=== PATIENT | female | born 1965 | race Caucasian/White ===

== ENCOUNTER 2020-07-24 09:20 | Outpatient (CLI) | payer BC | END 2020-07-24 09:21 | disposition home or self-care (01) | LOC: LAB.S 09:20 | PROVIDERS: ATTEND Physician Assistant | DX: E03.9 Hypothyroidism, unspecified (principal) | CPT/HCPCS: 36415; 84443 ==

== ENCOUNTER 2021-09-03 08:35 | Outpatient (CLI) | payer BC ==
[2021-09-03 15:43] LABS: BASOPHILS # (AUTO) 0.1 10^3/uL (0.0-0.1); BASOPHILS % (AUTO) 1.3 %; EOSINOPHILS # (AUTO) 0.2 10^3/uL (0.0-0.7); EOSINOPHILS % (AUTO) 3.8 %; HCT - HEMATOCRIT 35.6 % (37.0-47.0); LYMPHOCYTES # (AUTO) 1.4 10^3/uL (1.5-3.5); LYMPHOCYTES % (AUTO) 36.2 %; MEAN CORPUSCULAR HEMOGLOBIN 31.6 pg (27.0-31.0); MEAN CORPUSCULAR HGB CONC 30.9 g/dL (32.0-36.0); MEAN CORPUSCULAR VOLUME 102.3 fL (81.0-99.0); MEAN PLATELET VOLUME 11.6 fL (7.9-10.8); MONOCYTES # (AUTO) 0.4 10^3/uL (0.0-1.0); MONOCYTES % (AUTO) 8.9 %; NEUTROPHILS % (AUTO) 49.5 %; PLT - PLATELET COUNT 173 10^3/uL (130-450); RED BLOOD COUNT 3.48 10^6/uL (4.20-5.40); RED CELL DISTRIBUTION WIDTH 13.2 % (12.0-15.0)
[2021-09-03 15:57] LABS: ALBUMIN/GLOBULIN RATIO 1.7 (1.0-2.2); ALKALINE PHOSPHATASE 78 IU/L (42-121); ALT ALANINE AMINOTRANSFERASE 24 IU/L (10-60); AST ASPARTATE AMINOTRANSFERASE 26 IU/L (10-42); BILIRUBIN,TOTAL 0.7 mg/dL (0.2-1.0); BUN - BLOOD UREA NITROGEN 14 mg/dL (6-20); CARBON DIOXIDE - CO2 29 mmol/L (21-32); CHLORIDE 100 mmol/L (101-111); CHOL/HDL RATIO 1.8 (<4.4); CHOLESTEROL 170 mg/dL; CREATININE 0.7 mg/dL (0.4-1.0); GFR - MDRD 87 (>89); GLUCOSE 88 mg/dL (70-100); HDL CHOLESTEROL 92 mg/dL; LDL CHOLESTEROL,CALCULATED 69 mg/dL; LDL/HDL RATIO 0.8 (<4.4); POTASSIUM 3.5 mmol/L (3.5-5.0); SODIUM 138 mmol/L (135-145); TOTAL PROTEIN 6.3 g/dL (6.7-8.2); TRIGLYCERIDES 45 mg/dL; VLDL CHOLESTEROL 9 mg/dL
[2021-09-03 16:16] LABS: THYROID STIMULATING HORMONE 0.44 uIU/mL (0.34-5.60)
== END 2021-09-03 08:36 | disposition home or self-care (01) ==
LOC: LAB.S 08:35
PROVIDERS: ATTEND Registered Nurse
DX: E03.9 Hypothyroidism, unspecified (principal); Z13.220 Encounter for screening for lipoid disorders; Z13.0 Encounter for screening for diseases of the blood and blood-forming organs and certain disorders involving the immune mechanism; Z79.899 Other long term (current) drug therapy
CPT/HCPCS: 36415; 80053; 80061; 83721; 84443; 85025

== ENCOUNTER 2021-10-12 08:10 | Outpatient (CLI) | payer BC ==
[2021-10-12 14:22] LABS: BASOPHILS # (AUTO) 0.1 10^3/uL (0.0-0.1); BASOPHILS % (AUTO) 1.1 %; EOSINOPHILS # (AUTO) 0.2 10^3/uL (0.0-0.7); EOSINOPHILS % (AUTO) 3.4 %; HGB - HEMOGLOBIN 11.5 g/dL (12.0-16.0); LYMPHOCYTES # (AUTO) 1.4 10^3/uL (1.5-3.5); LYMPHOCYTES % (AUTO) 32.6 %; MEAN CORPUSCULAR HEMOGLOBIN 31.4 pg (27.0-31.0); MEAN CORPUSCULAR HGB CONC 31.9 g/dL (32.0-36.0); MEAN CORPUSCULAR VOLUME 98.4 fL (81.0-99.0); MEAN PLATELET VOLUME 11.6 fL (7.9-10.8); MONOCYTES # (AUTO) 0.4 10^3/uL (0.0-1.0); MONOCYTES % (AUTO) 8.6 %; NEUTROPHILS # (AUTO) 2.4 10^3/uL (1.5-6.6); NEUTROPHILS % (AUTO) 54.3 %; PLT - PLATELET COUNT 205 10^3/uL (130-450); RED BLOOD COUNT 3.66 10^6/uL (4.20-5.40); RED CELL DISTRIBUTION WIDTH 12.7 % (12.0-15.0); WHITE BLOOD COUNT 4.4 x10^3/uL (4.8-10.8)
== END 2021-10-12 08:11 | disposition home or self-care (01) ==
LOC: LAB.S 08:10
PROVIDERS: ATTEND Registered Nurse
DX: Z79.899 Other long term (current) drug therapy (principal)
CPT/HCPCS: 36415; 85025

== ENCOUNTER 2021-11-29 08:19 | Outpatient (CLI) | payer BC ==
[2021-11-29 15:15] LABS: ABSOLUTE RETICS # AUTO 0.036 10^6/uL (0.020-0.110); BASOPHILS # (AUTO) 0.1 10^3/uL (0.0-0.1); BASOPHILS % (AUTO) 1.1 %; EOSINOPHILS # (AUTO) 0.1 10^3/uL (0.0-0.7); EOSINOPHILS % (AUTO) 2.6 %; HCT - HEMATOCRIT 35.1 % (37.0-47.0); HGB - HEMOGLOBIN 11.6 g/dL (12.0-16.0); LYMPHOCYTES # (AUTO) 1.5 10^3/uL (1.5-3.5); LYMPHOCYTES % (AUTO) 32.5 %; MEAN CORPUSCULAR HEMOGLOBIN 32.3 pg (27.0-31.0); MEAN CORPUSCULAR VOLUME 97.8 fL (81.0-99.0); MEAN PLATELET VOLUME 11.1 fL (7.9-10.8); MONOCYTES # (AUTO) 0.4 10^3/uL (0.0-1.0); MONOCYTES % (AUTO) 7.8 %; NEUTROPHILS # (AUTO) 2.6 10^3/uL (1.5-6.6); NEUTROPHILS % (AUTO) 55.8 %; PLT - PLATELET COUNT 182 10^3/uL (130-450); RED BLOOD COUNT 3.59 10^6/uL (4.20-5.40); RED CELL DISTRIBUTION WIDTH 13.2 % (12.0-15.0); WHITE BLOOD COUNT 4.6 x10^3/uL (4.8-10.8)
[2021-11-29 16:00] LABS: FERRITIN 11.5 ng/mL (11.0-306.8)
[2021-11-29 16:22] LABS: % IRON SATURATION 18 % (20-50); IRON 80 ug/dL (28-170); TOTAL IRON BINDING CAPACITY 444 ug/dL (250-450); TRANSFERRIN 317 mg/dL (192-382)
== END 2021-11-29 08:20 | disposition home or self-care (01) ==
LOC: LAB.S 08:19
PROVIDERS: ATTEND Registered Nurse
DX: D64.9 Anemia, unspecified (principal)
CPT/HCPCS: 36415; 81599; 82607; 82728; 82746; 83020; 83540; 84466; 85014; 85018; 85025; 85041; 85045

== ENCOUNTER 2022-01-13 09:22 | Day surgery (SDC) | payer BC ==
[2022-01-13] MEDS ORDERED: LACTATED RINGERS 1,000 ML IV ONE (09:27)
[2022-01-13] MEDS ORDERED: PROPOFOL 500 MG/50 ML 500 MG/50 ML VIAL ONE (09:59)
[2022-01-13] MEDS ORDERED: MIDAZOLAM 2 MG/2 ML VIAL ONE (10:08)
--- NOTE | 2022-01-13 10:12 | ANESTHESIA ---
Pre-Anesthesia VS, & Labs - Diagnosis anemia - Procedure EGD Vital Signs: Temp Pulse Resp BP Pulse Ox 36.4 C L 81 16 148/95 H 100 01/13/22 09:27 01/13/22 09:27 01/13/22 09:27 01/13/22 09:27 01/13/22 09:27 Height: 5 ft 3 in Weight (kg): 60.9 kg Body Mass Index: 23.8 BMI Classification: Healthy weight - NPO >8 hours - Is Patient ?: No Home Medications and Allergies Home Medications: Ambulatory Orders Fexofenadine [Elisha] 60 mg PO PRN PRN 01/12/22 Levothyroxine [Synthroid] 25 mcg PO QDAC 01/12/22 Multivitamin 1 each PO DAILY 01/12/22 Nortriptyline [Pamelor] 30 mg PO HS 01/12/22 diphenhydrAMINE [Benadryl] 1 tab ORAL PRN PRN 01/12/22 Fexofenadine [Elisha] 60 mg PO PRN PRN 01/12/22 Levothyroxine [Synthroid] 25 mcg PO QDAC 01/12/22 Multivitamin 1 each PO DAILY 01/12/22 Nortriptyline [Pamelor] 30 mg PO HS 01/12/22 diphenhydrAMINE [Benadryl] 1 tab ORAL PRN PRN 01/12/22 Allergies/Adverse Reactions: Allergies Allergy/AdvReac Type Severity Reaction Status Date / Time No Known Drug Allergies Allergy Verified 01/12/22 14:27 Anes History & Medical History - Anesthetic History Anesthesia Complications: reports: No previous complications - Medical History Cardiovascular: reports: None Pulmonary: reports: None Gastrointestinal: reports: None, GERD Urinary: reports: None Musculoskeletal: reports: Osteoarthritis Endocrine/Autoimmune: reports: HyPOthyroidism Smoking Status: Never smoker History of Cancer?: No - Surgical History Eyes Ears Nose Throat (EENT): reports: Tonsil/Adenoidectomy Exam General: Alert Dental: WNL Mouth Opening: Greater than 4 Fingerbreadths Neck Mobility: Normal Mallampati classification: II Thyromental Distance: greater than 6 cm Respiratory: Lungs clear Cardiovascular: Regular rate Plan Anesthesia Type: Total IV Consent for Procedure(s) Verified and Reviewed: Yes Code Status: Attempt Resuscitation ASA classification: 2-Mild systemic disease Is this case an emergency?: No
[2022-01-13] MEDS ORDERED: LIDOCAINE-MPF 2% 5 ML VIAL ONE (10:41)
[2022-01-13] MEDS ORDERED: PROPOFOL 200 MG/20 ML VIAL IVP ONE (10:54)
[2022-01-13] MEDS ORDERED: LACTATED RINGERS 300 ML IV ONE (11:30)
[2022-01-13 12:22] VITALS: BP 140/86
--- NOTE | 2022-01-13 13:08 | ANESTHESIA POST OP EVALUATION ---
Anesthesia Post Eval - Post Anesthesia Eval Vitals: Last Vital Signs Temp 36.3 C L 01/13/22 12:15 Pulse 52 L 01/13/22 12:15 Resp 12 01/13/22 12:15 BP 140/86 H 01/13/22 12:15 Pulse Ox 100 01/13/22 12:15 CV Function Including HR & BP: Stable Pain Control: Satisfactory Nausea & Vomiting: Negative Mental Status: Baseline Respiratory Status: Airway Patent Hydration Status: Satisfactory Anesthesia Complications: None
== END 2022-01-13 09:23 | disposition home or self-care (01) ==
LOC: SDS 09:22
PROVIDERS: ATTEND Surgery
PROC: 0DB78ZX Excision of Stomach, Pylorus, Via Natural or Artificial Opening Endoscopic, Diagnostic (ICD-10-PCS; 2022-01-13)
PROC: 0DB38ZX Excision of Lower Esophagus, Via Natural or Artificial Opening Endoscopic, Diagnostic (ICD-10-PCS; 2022-01-13)
PROC: 0DB48ZX Excision of Esophagogastric Junction, Via Natural or Artificial Opening Endoscopic, Diagnostic (ICD-10-PCS; 2022-01-13)
PROC: 0DBP8ZZ Excision of Rectum, Via Natural or Artificial Opening Endoscopic (ICD-10-PCS; principal; 2022-01-13 10:30)
PROC: 0DB98ZX Excision of Duodenum, Via Natural or Artificial Opening Endoscopic, Diagnostic (ICD-10-PCS; 2022-01-13 10:30)
DX: D64.9 Anemia, unspecified (principal); D12.8 Benign neoplasm of rectum; K57.30 Diverticulosis of large intestine without perforation or abscess without bleeding; K21.9 Gastro-esophageal reflux disease without esophagitis
CPT/HCPCS: 43239; 45385; J7120

== ENCOUNTER 2022-03-28 15:44 | Emergency (ER) | payer BC ==
[2022-03-28 15:50] VITALS: BP 126/93
[2022-03-28] MEDS ORDERED: BACITRACIN ZINC OINT 1 PACKET TOP STA (17:12)
[2022-03-28] MEDS ORDERED: AMOX/CLAV 875 MG/125 MG TABLET PO STA (17:18)
--- NOTE | 2022-03-28 17:22 | ED Physician Documentation ---
History of Present Illness - Stated complaint Stated Complaint: DOG BITE - Chief complaint Chief Complaint: Laceration - History obtained from History obtained from: Patient - Additonal information Additional information: Patient comes emergency department chief complaint of dog bite. Patient states her 2 dogs were fighting and she tried to break them up and ended up getting bitten. She states she has wounds on both hands and forearms. No other injuries or complaints. Tetanus is up-to-date. Review of Systems Ten Systems: 10 systems reviewed and negative Constitutional: reports: Reviewed and negative Eyes: reports: Reviewed and negative Ears: reports: Reviewed and negative Nose: reports: Reviewed and negative Throat: reports: Reviewed and negative Cardiac: reports: Reviewed and negative Respiratory: reports: Reviewed and negative GI: reports: Reviewed and negative : reports: Reviewed and negative Skin: reports: Bite / sting Musculoskeletal: reports: Reviewed and negative Neurologic: reports: Reviewed and negative Psychiatric: reports: Reviewed and negative Endocrine: reports: Reviewed and negative Immunocompromised: reports: Reviewed and negative PD PAST MEDICAL HISTORY - Past Medical History Past Medical History: Yes Cardiovascular: None Respiratory: None Neuro: None Endocrine/Autoimmune: HyPOthyroidism GI: GERD A P SUPERVISOR: None : None HEENT: None Psych: None Musculoskeletal: Osteoarthritis Derm: None - Past Surgical History Past Surgical History: Yes General: Colonoscopy HEENT: Tonsil/Adenoidectomy - Present Medications Home Medications: Ambulatory Orders Medication Instructions Recorded Confirmed Fexofenadine [Elisha] 60 mg PO PRN PRN 01/12/22 03/28/22 Levothyroxine [Synthroid] 25 mcg PO QDAC 01/12/22 03/28/22 Multivitamin 1 each PO DAILY 01/12/22 03/28/22 Nortriptyline [Pamelor] 30 mg PO HS 01/12/22 03/28/22 diphenhydrAMINE [Benadryl] 1 tab ORAL PRN PRN 01/12/22 03/28/22 Amox/Clav 875/125 [Augmentin 1 tablet PO Q12H 7 Days #14 tablet 03/28/22 875/125 Tab] - Allergies Allergies/Adverse Reactions: Allergies Allergy/AdvReac Type Severity Reaction Status Date / Time No Known Drug Allergies Allergy Verified 03/28/22 15:50 - Social History Does the pt smoke?: No Smoking Status: Never smoker Does the pt drink ETOH?: No Does the pt have substance abuse?: No - Immunizations Immunizations are current?: Yes PD ED PE NORMAL - Vitals Vital signs reviewed: Yes - General General: Alert and oriented X 3, No acute distress, Well developed/nourished - HEENT HEENT: Atraumatic, PERRL, EOMI, Moist mucous membranes - Neck Neck: Supple, no meningeal sign - Cardiac Cardiac: Strong equal pulses - Respiratory Respiratory: No respiratory distress - Derm Derm: Warm and dry, Other (Multiple skin tears and superficial punctures over patient's bilateral hands and forearms. An oblique, V-shaped deep tear/laceration is noted on right forearm and another lac/tear more proximally that is approximately 1 cm in length. No foreign body ) - Extremities Extremities: No deformity, Normal ROM s pain - Neuro Neuro: Alert and oriented X 3 - Psych Psych: Normal mood, Normal affect Results - Vitals Vitals: Vital Signs - 24 hr 03/28/22 15:48 Temperature 36.1 C L Heart Rate 76 Respiratory 16 Rate Blood Pressure 126/93 H O2 Saturation 100 Oxygen O2 Source Room air Procedures - Laceration (location) Right forearm Length in cm: 2.5 Wound type: Flap, Into subcut fat, Clean Neurovascular status: Sensory intact, Motor intact, Vascular intact Tendon involvement: Tendon intact Anesthesia: Lidocaine 1% Wound preparation: Hibiclens, Irrigated copiously NS, Wound explored, To the base, debridement of wound edges (traumatic laceration/avulsion) Skin layer closure: Nylon, Interrupted, Size #-0 - enter number (4.0), Sutures - enter # (5) Other: Patient tolerated well, No complications, Dressing applied, Tetanus UTD Left forearm Length in cm: 1 Wound type: Linear Neurovascular status: Sensory intact, Motor intact, Vascular intact Tendon involvement: Tendon intact Anesthesia: Lidocaine 1% Wound preparation: Hibiclens, Irrigated copiously NS, Wound explored, To the base Skin layer closure: Nylon, Interrupted, Size #-0 - enter number, Sutures - enter # (2) Other: Patient tolerated well, No complications, Neurovascular intact, Dressing applied PD MEDICAL DECISION MAKING - ED course Complexity details: considered differential, d/w patient ED course: Patient's wounds were cleaned and dressed and repaired as above. Patient was started on Augmentin. We have discussed wound care at home, timeline for suture removal, and the usual indications for return. Departure - Departure Disposition: 01 Home, Self Care Clinical Impression: Laceration Dog bite Qualifiers: Encounter type: initial encounter Qualified Code(s): W54.0XXA - Bitten by dog, initial encounter Condition: Stable Instructions: ED Bite Dog, ED Laceration Hand Prescriptions: Amox/Clav 875/125 [Augmentin 875/125 Tab] 1 tablet PO Q12H 7 Days #14 tablet Comments: Your 2 wounds have been sutured with a total of 7 sutures today. These are synthetic sutures and will need to be removed by medical professional in 7 days. You may go to urgent care, walk-in clinic, or your primary doctor for this. If you are unable to be seen in any of these venues, you may return to the emergency department for wound check and suture removal. In general, dog bite wounds that are washed very well do not become infected, but because we have had to close to her wounds, rather than leaving the floor the wound open to air, we will place you on antibiotics. You have been given first dose here, but please picker packer the remainder at the pharmacy of your choice via prescription. You may let water and soap run over the sutured wounds but please do not rub, scrub, or immerse the wounds until sutures are removed. This is to prevent infection. If you begin to notice redness and swelling spreading away from the wound, or if you notice that they formally crusted and scabbed wound has become and "mushy", you will need to have the wound rechecked. Discharge Date/Time: 03/28/22 17:32
== END 2022-03-28 17:32 | disposition home or self-care (01) ==
LOC: ED 15:44
DX: S51.812A Laceration without foreign body of left forearm, initial encounter (principal); S51.811A Laceration without foreign body of right forearm, initial encounter; S60.572A Other superficial bite of hand of left hand, initial encounter; S60.571A Other superficial bite of hand of right hand, initial encounter; W54.0XXA Bitten by dog, initial encounter; Y93.K9 Activity, other involving animal care
CPT/HCPCS: 12002; 99282; A9270

== ENCOUNTER 2022-09-26 08:05 | Outpatient (CLI) | payer BC ==
[2022-09-26 15:06] LABS: BASOPHILS # (AUTO) 0.1 10^3/uL (0.0-0.1); BASOPHILS % (AUTO) 1.1 %; EOSINOPHILS # (AUTO) 0.2 10^3/uL (0.0-0.7); EOSINOPHILS % (AUTO) 3.3 %; HGB - HEMOGLOBIN 12.3 g/dL (12.0-16.0); LYMPHOCYTES # (AUTO) 1.9 10^3/uL (1.5-3.5); LYMPHOCYTES % (AUTO) 34.6 %; MEAN CORPUSCULAR HEMOGLOBIN 32.8 pg (27.0-31.0); MEAN CORPUSCULAR HGB CONC 32.4 g/dL (32.0-36.0); MEAN CORPUSCULAR VOLUME 101.3 fL (81.0-99.0); MEAN PLATELET VOLUME 10.2 fL (7.9-10.8); MONOCYTES # (AUTO) 0.5 10^3/uL (0.0-1.0); MONOCYTES % (AUTO) 8.4 %; NEUTROPHILS # (AUTO) 2.9 10^3/uL (1.5-6.6); NEUTROPHILS % (AUTO) 52.4 %; PLT - PLATELET COUNT 230 10^3/uL (130-450); RED BLOOD COUNT 3.75 10^6/uL (4.20-5.40); RED CELL DISTRIBUTION WIDTH 12.4 % (12.0-15.0); WHITE BLOOD COUNT 5.5 x10^3/uL (4.8-10.8)
[2022-09-26 15:31] LABS: ALBUMIN 4.1 g/dL (3.2-5.5); ALBUMIN/GLOBULIN RATIO 1.6 (1.0-2.2); ALKALINE PHOSPHATASE 59 IU/L (42-121); ALT ALANINE AMINOTRANSFERASE 20 IU/L (10-60); AST ASPARTATE AMINOTRANSFERASE 25 IU/L (10-42); BILIRUBIN,TOTAL 0.6 mg/dL (0.2-1.0); BUN - BLOOD UREA NITROGEN 21 mg/dL (6-20); CARBON DIOXIDE - CO2 28 mmol/L (21-32); CHLORIDE 105 mmol/L (101-111); CHOLESTEROL 216 mg/dL; CREATININE 0.7 mg/dL (0.4-1.0); GFR - MDRD 87 (>89); GLUCOSE 95 mg/dL (70-100); HDL CHOLESTEROL 110 mg/dL; POTASSIUM 4.2 mmol/L (3.5-5.0); SODIUM 139 mmol/L (135-145); TOTAL PROTEIN 6.6 g/dL (6.7-8.2); TRIGLYCERIDES 38 mg/dL
[2022-09-26 15:35] LABS: THYROID STIMULATING HORMONE 3.48 uIU/mL (0.34-5.60)
== END 2022-09-26 08:06 | disposition home or self-care (01) ==
LOC: LAB.S 08:05
PROVIDERS: ATTEND Registered Nurse
DX: E03.9 Hypothyroidism, unspecified (principal); D61.818 Other pancytopenia; Z79.899 Other long term (current) drug therapy; Z13.220 Encounter for screening for lipoid disorders
CPT/HCPCS: 36415; 80053; 80061; 83721; 84443; 85025

== ENCOUNTER 2023-11-06 08:37 | Outpatient (CLI) | payer BC ==
[2023-11-06 15:09] LABS: BASOPHILS # (AUTO) 0.1 10^3/uL (0.0-0.1); BASOPHILS % (AUTO) 1.2 %; EOSINOPHILS # (AUTO) 0.2 10^3/uL (0.0-0.7); EOSINOPHILS % (AUTO) 3.4 %; HCT - HEMATOCRIT 38.9 % (37.0-47.0); HGB - HEMOGLOBIN 12.4 g/dL (12.0-16.0); LYMPHOCYTES # (AUTO) 2.1 10^3/uL (1.5-3.5); MEAN CORPUSCULAR HEMOGLOBIN 31.7 pg (27.0-31.0); MEAN CORPUSCULAR HGB CONC 31.9 g/dL (32.0-36.0); MEAN CORPUSCULAR VOLUME 99.5 fL (81.0-99.0); MEAN PLATELET VOLUME 10.4 fL (7.9-10.8); MONOCYTES # (AUTO) 0.4 10^3/uL (0.0-1.0); MONOCYTES % (AUTO) 7.5 %; NEUTROPHILS # (AUTO) 3.1 10^3/uL (1.5-6.6); NEUTROPHILS % (AUTO) 52.6 %; PLT - PLATELET COUNT 236 10^3/uL (130-450); RED BLOOD COUNT 3.91 10^6/uL (4.20-5.40); RED CELL DISTRIBUTION WIDTH 12.8 % (12.0-15.0); WHITE BLOOD COUNT 5.9 x10^3/uL (4.8-10.8)
[2023-11-06 17:15] LABS: ALBUMIN 4.4 g/dL (3.2-5.5); ALKALINE PHOSPHATASE 58 IU/L (42-121); ALT ALANINE AMINOTRANSFERASE 18 IU/L (10-60); AST ASPARTATE AMINOTRANSFERASE 21 IU/L (10-42); BILIRUBIN,TOTAL 0.5 mg/dL (0.2-1.0); BUN - BLOOD UREA NITROGEN 16 mg/dL (6-20); CALCIUM 9.3 mg/dL (8.5-10.3); CARBON DIOXIDE - CO2 30 mmol/L (21-32); CHLORIDE 104 mmol/L (101-111); CHOL/HDL RATIO 2.2 (<4.4); CHOLESTEROL 221 mg/dL; CREATININE 0.8 mg/dL (0.6-1.3); GFR - MDRD 74 (>89); GLUCOSE 85 mg/dL (74-104); HDL CHOLESTEROL 99 mg/dL; LDL CHOLESTEROL,CALCULATED 109 mg/dL; LDL/HDL RATIO 1.1 (<4.4); SODIUM 140 mmol/L (135-145); TOTAL PROTEIN 6.6 g/dL (6.4-8.9); TRIGLYCERIDES 65 mg/dL (48-352); VLDL CHOLESTEROL 13 mg/dL
[2023-11-06 17:47] LABS: THYROID STIMULATING HORMONE 4.35 uIU/mL (0.34-5.60)
== END 2023-11-06 08:38 | disposition home or self-care (01) ==
LOC: LAB.S 08:37
PROVIDERS: ATTEND Registered Nurse
DX: E03.9 Hypothyroidism, unspecified (principal); Z79.899 Other long term (current) drug therapy; Z13.220 Encounter for screening for lipoid disorders
CPT/HCPCS: 36415; 80053; 80061; 83721; 84443; 85025